=== PATIENT | male | born 1980 | race Native Hawaiian/Other Pacific Islander ===

== ENCOUNTER 2017-02-10 13:40 | Emergency (ER) | payer MEDICAID ==
[2017-02-10 13:46] VITALS: BP 144/97
== END 2017-02-10 14:28 | disposition left against medical advice (07) ==
LOC: ED 13:40
DX: Z53.21 Procedure and treatment not carried out due to patient leaving prior to being seen by health care provider (principal)
CPT/HCPCS: 93005

== ENCOUNTER 2017-03-20 22:00 | Emergency (ER) | payer MEDICAID ==
--- NOTE | 2017-03-20 22:57 | ED Physician Documentation ---
PD HPI HEADACHE - Stated complaint Stated Complaint: OBREGON - Chief complaint Chief Complaint: General - History obtained from History obtained from: Patient - History of Present Illness Timing - onset: Last night Timing - details: Gradual onset, Constant, Waxing and waning Pain level now: 9 Worst headache ever?: No: Worst headache ever? 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 No: Fever , Stiff neck, Vision changes Improved by: Rest, Dark room, Quiet Worsened by: Light, Noise Similar symptoms before: Diagnosis (c/w previous migraine headaches) Recently seen: Emergency Dept (T+R last month for unrelated c/o) - Additional information Additional information: c/o headache that is typical for his migraine headaches, unresponsive to his home medications (imitrex, tylenol. he also takes daily oxycodone for chronic pain) Review of Systems Constitutional: denies: Fever, Chills, Sweats Eyes: reports: Photophobia. 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 denies: Abdominal Pain, Vomiting Neurologic: reports: Headache. denies: Generalized weakness, Focal weakness, Numbness PD PAST MEDICAL HISTORY - Past Medical History Past Medical History: Yes Cardiovascular: Hypertension Neuro: Headache/migraine Musculoskeletal: Chronic back pain - Past Surgical History Past Surgical History: Yes Ortho: Other - Present Medications Home Medications: Ambulatory Orders Medication Instructions Recorded Confirmed Propranolol [Inderal] 10 mg PO DAILY 12/28/15 03/20/17 Lisinopril 40 mg PO DAILY 03/22/16 03/20/17 Sumatriptan Succinate [Imitrex] 100 mg PO ONCE PRN #9 tablet 03/22/16 03/20/17 oxyCODONE [Roxicodone] 10 mg PO BID PRN 08/04/16 03/20/17 cloNIDine 0.1 MG PATCH 1 patch .Q7DAYS 03/20/17 03/20/17 [[id number]] - Allergies Allergies/Adverse Reactions: Allergies Allergy/AdvReac Type Severity Reaction Status Date / Time hydrocodone bitartrate * Allergy Intermediate Rash Verified 03/20/17 22:13 [From Vicodin] amoxicillin Allergy Rash Verified 03/20/17 22:13 crab Allergy Unknown Verified 03/20/17 22:13 iodine Allergy Unknown Verified 03/20/17 22:13 - Social History Does the pt smoke?: No Smoking Status: Former smoker Does the pt drink ETOH?: No Does the pt have substance abuse?: No - Immunizations Immunizations are current?: Yes - POLST Patient has POLST: No PD ED PE NORMAL - Vitals Vital signs reviewed: Yes - General General: Alert and oriented X 3, No acute distress (NAD but prefers lights off in room due to photophobia), Well developed/nourished - HEENT HEENT: PERRL, EOMI, Moist mucous membranes - Neck Neck: Supple, no meningeal sign - Cardiac Cardiac: RRR, No murmur - Respiratory Respiratory: No respiratory distress, Clear bilaterally - Neuro Neuro: Alert and oriented X 3, parking attendant 2-12 intact, No motor deficit, No sensory deficit, Normal speech Results - Vitals Vitals: Vital Signs - 24 hr 03/20/17 03/20/17 03/20/17 22:06 22:41 23:25 Temperature 36.5 C Heart Rate 128 H 90 Respiratory 18 18 Rate Blood Pressure 182/117 H 187/122 H 187/126 H O2 Saturation 98 100 03/21/17 00:00 Temperature Heart Rate 88 Respiratory 16 Rate Blood Pressure 182/125 H O2 Saturation 98 Oxygen O2 Source Room air PD MEDICAL DECISION MAKING - ED course Complexity details: re-evaluated patient, considered differential, d/w patient ED course: Based on previous OBREGON treatment in ED, I offered IV compazine, toradol, and benadryl. Patient prefers to start with SQ imitrex, as this alone has (sometimes ) been effective. Departure - Departure Disposition: 01 Home, Self Care Clinical Impression: Migraine Condition: Good Instructions: ED Headache Migraine Follow-Up: Yanet William DO [Primary Care Provider] - Comments: Take your blood pressure medications as soon as you get home Discharge Date/Time: 03/21/17 00:26
[2017-03-20] MEDS ORDERED: SUMAtriptan 6 MG/0.5 ML VIAL SUBQ STA (23:09)
[2017-03-20] MEDS ORDERED: SUMAtriptan 6 MG/0.5 ML VIAL SUBQ ONE (23:12)
[2017-03-21 00:26] VITALS: BP 182/125
== END 2017-03-21 00:26 | disposition home or self-care (01) ==
LOC: ED 22:00
DX: G43.909 Migraine, unspecified, not intractable, without status migrainosus (principal); I10 Essential (primary) hypertension
CPT/HCPCS: 96372; 99283

== ENCOUNTER 2017-03-25 16:21 | Emergency (ER) | payer MEDICAID ==
[2017-03-25 16:35] VITALS: BP 162/112
== END 2017-03-25 19:43 | disposition left against medical advice (07) ==
LOC: ED 16:21
DX: Z53.21 Procedure and treatment not carried out due to patient leaving prior to being seen by health care provider (principal)

== ENCOUNTER 2017-04-03 12:12 | Emergency (ER) | payer MEDICAID ==
[2017-04-03] MEDS ORDERED: diphenhydrAMINE INJ 50 MG/ML VIAL IVP STA (12:33)
[2017-04-03] MEDS ORDERED: SODIUM CHLORIDE 0.9% 1,000 ML IV ONE (12:33)
[2017-04-03] MEDS ORDERED: SUMAtriptan 6 MG/0.5 ML VIAL SUBQ STA (12:33)
[2017-04-03] MEDS ORDERED: KETOROLAC 30 MG/ML VIAL IVP STA (12:33)
[2017-04-03] MEDS ORDERED: PROCHLORPERAZINE 10 MG/2 ML VIAL IVP STA (12:34)
--- NOTE | 2017-04-03 12:35 | ED Physician Documentation ---
PD HPI HEADACHE - Stated complaint Stated Complaint: HEADACHE - Chief complaint Chief Complaint: Neuro - History obtained from History obtained from: Patient - History of Present Illness Timing - onset: Other (Gradual onset throbbing headache this morning with vomiting, could not keep down his Imitrex. He also has photophobia and phonophobia consistent with prior migraines. No fevers or neck stiffness.) Review of Systems Constitutional: denies: Fever, Chills Eyes: reports: Photophobia Nose: denies: Rhinorrhea / runny nose, Congestion Cardiac: denies: Chest pain / pressure, Palpitations Respiratory: denies: Dyspnea, Cough PD PAST MEDICAL HISTORY - Past Medical History Past Medical History: Yes Cardiovascular: Hypertension Neuro: Headache/migraine Musculoskeletal: Chronic back pain - Past Surgical History Past Surgical History: Yes Ortho: Other - Present Medications Home Medications: Ambulatory Orders Medication Instructions Recorded Confirmed Propranolol [Inderal] 10 mg PO DAILY 12/28/15 04/03/17 Lisinopril 40 mg PO DAILY 03/22/16 04/03/17 Sumatriptan Succinate [Imitrex] 100 mg PO ONCE PRN #9 tablet 03/22/16 04/03/17 oxyCODONE [Roxicodone] 10 mg PO BID PRN 08/04/16 04/03/17 cloNIDine 0.1 MG PATCH 1 patch .Q7DAYS 03/20/17 04/03/17 [[id number]] - Allergies Allergies/Adverse Reactions: Allergies Allergy/AdvReac Type Severity Reaction Status Date / Time hydrocodone bitartrate * Allergy Intermediate Rash Verified 03/20/17 22:13 [From Vicodin] amoxicillin Allergy Rash Verified 03/20/17 22:13 crab Allergy Unknown Verified 03/20/17 22:13 iodine Allergy Unknown Verified 03/20/17 22:13 - Social History Does the pt smoke?: No Smoking Status: Former smoker Does the pt drink ETOH?: No Does the pt have substance abuse?: No - Immunizations Immunizations are current?: Yes - POLST Patient has POLST: No PD ED PE NORMAL - Vitals Vital signs reviewed: Yes - General General: Alert and oriented X 3, Other (Uncomfortable, photophobic) - HEENT HEENT: PERRL, EOMI - Neck Neck: Supple, no meningeal sign, No bony TTP - Neuro Neuro: Alert and oriented X 3, No motor deficit, No sensory deficit, Normal speech - Psych Psych: Normal mood, Normal affect Results - Vitals Vitals: Vital Signs - 24 hr 04/03/17 12:22 Temperature 36.6 C Heart Rate 81 Respiratory 20 Rate Blood Pressure 141/99 H O2 Saturation 100 Oxygen O2 Source Room air PD MEDICAL DECISION MAKING - ED course ED course: 37-year-old gentleman with frequent migraines. Presents with gradual onset headache similar to prior with typical features of migraine. He was administered Compazine, Benadryl, IV fluids, Toradol with good relief, although somewhat incomplete and this was followed by dexamethasone and he requested discharge. Departure - Departure Disposition: 01 Home, Self Care Clinical Impression: Migraine, Headache Condition: Good Record reviewed to determine appropriate education?: Yes Instructions: ED Headache Migraine Comments: Consider following up with a headache specialist given the frequency of your headache, [place], the phone number is Your blood pressure was elevated today on check into the emergency department. This does not mean that you have hypertension, it is a common phenomenon to come to the emergency department and have elevated blood pressure. I recommend that she see her primary care physician within the week to have it rechecked when you are feeling better.
[2017-04-03] MEDS ORDERED: diphenhydrAMINE INJ 50 MG/ML VIAL ONE (12:47)
[2017-04-03] MEDS ORDERED: KETOROLAC 30 MG/ML VIAL ONE (12:47)
[2017-04-03] MEDS ORDERED: SUMAtriptan 6 MG/0.5 ML VIAL SUBQ ONE (12:47)
[2017-04-03] MEDS ORDERED: SODIUM CHLORIDE FLUSH 0.9% 10 ML SYRINGE IVP ONE (12:48)
[2017-04-03] MEDS ORDERED: PROCHLORPERAZINE 10 MG/2 ML VIAL ONE (12:48)
[2017-04-03] MEDS ORDERED: DEXAMETHASONE 10 MG/ML VIAL IVP STA (13:21)
[2017-04-03] MEDS ORDERED: DEXAMETHASONE 10 MG/ML VIAL ONE (13:35)
[2017-04-03 13:47] VITALS: BP 140/87
== END 2017-04-03 13:48 | disposition home or self-care (01) ==
LOC: ED 12:12
DX: G43.909 Migraine, unspecified, not intractable, without status migrainosus (principal); I10 Essential (primary) hypertension; Z87.891 Personal history of nicotine dependence
CPT/HCPCS: 96361; 96372; 96374; 96375; 99283; 99284

== ENCOUNTER 2018-01-04 10:34 | Emergency (ER) | payer MEDICAID ==
--- NOTE | 2018-01-04 10:44 | ED Physician Documentation ---
History of Present Illness - Stated complaint Stated Complaint: SI - Additonal information Additional information: hx from EMS and pt 37 male he and his made a suicide pact to shoot themselves they went into the [place], took some mm relaxants and used some meth he awoke groggy and weak EMS came found his dad pt transported to ED for OD and [facility] he denies other meds he denies pain Review of Systems Constitutional: denies: Fever Throat: denies: Sore throat Cardiac: denies: Chest pain / pressure Respiratory: denies: Dyspnea GI: denies: Abdominal Pain Neurologic: reports: Generalized weakness Psychiatric: reports: Depressed, Suicidal Endocrine: denies: Easy bruising / bleeding Immunocompromised: denies: Immunocompromised PD PAST MEDICAL HISTORY - Past Medical History Cardiovascular: Hypertension Neuro: Headache/migraine Musculoskeletal: Chronic back pain - Past Surgical History Past Surgical History: Yes Ortho: Other - Present Medications Home Medications: Ambulatory Orders Medication Instructions Recorded Confirmed Propranolol [Inderal] 10 mg PO DAILY 12/28/15 04/03/17 Lisinopril 40 mg PO DAILY 03/22/16 04/03/17 Sumatriptan Succinate [Imitrex] 100 mg PO ONCE PRN #9 tablet 03/22/16 04/03/17 oxyCODONE [Roxicodone] 10 mg PO BID PRN 08/04/16 04/03/17 cloNIDine 0.1 MG PATCH 1 patch .Q7DAYS 03/20/17 04/03/17 [[id number]] - Allergies Allergies/Adverse Reactions: Allergies Allergy/AdvReac Type Severity Reaction Status Date / Time hydrocodone bitartrate * Allergy Intermediate Rash Verified 03/20/17 22:13 [From Vicodin] amoxicillin Allergy Rash Verified 03/20/17 22:13 crab Allergy Unknown Verified 03/20/17 22:13 iodine Allergy Unknown Verified 03/20/17 22:13 - Social History Does the pt smoke?: No Smoking Status: Former smoker Does the pt drink ETOH?: No Does the pt have substance abuse?: No - Immunizations Immunizations are current?: Yes - POLST Patient has POLST: No PD ED PE NORMAL - Vitals Vital signs reviewed: Yes - General General: Other (arousable cooperative) - HEENT HEENT: PERRL (7) - Neck Neck: Supple, no meningeal sign - Cardiac Cardiac: RRR - Respiratory Respiratory: No respiratory distress, Clear bilaterally - Abdomen Abdomen: Soft, Non tender - Derm Derm: Normal color, Other (completely undressed and examined and no bullet holes found, no track boyle) - Extremities Extremities: No deformity - Neuro Neuro: Alert and oriented X 3 - Psych Psych: Other (admits suicide plan , denies suicidal right now, denies hallucinations) Results - Vitals Vitals: Vital Signs - 24 hr 01/04/18 01/04/18 10:42 13:43 Temperature 36.7 C Heart Rate 109 H 113 H Respiratory 20 24 Rate Blood Pressure 157/108 H 126/95 H O2 Saturation 97 100 Oxygen O2 Source Room air - EKG (time done) 1108 Rate: Rate (enter#) (110) Rhythm: Sinus tachycardia Spencer: Normal Intervals: Normal CA Ischemia: Other (flat T waves diffusely) - Labs Labs: Laboratory Tests 01/04/18 01/04/18 01/04/18 11:28 11:28 12:10 WBC 14.5 H RBC 5.28 Hgb 15.3 Hct 46.2 MCV 87.4 MCH 29.0 MCHC 33.2 RDW 13.0 Plt Count 339 MPV 6.4 L Neut # 12.1 H Lymph # 1.1 L [place] # 1.2 H Eos # 0.0 Baso # 0.1 Absolute Nucleated RBC 0.00 Nucleated RBC % 0.0 Sodium 135 Potassium 4.4 Chloride 99 L Carbon Dioxide 25 Anion Gap 11.0 BUN 24 H Creatinine 1.4 H Estimated GFR (MDRD) 57 L Glucose 110 H Calcium 9.3 Total Bilirubin 1.0 AST 36 ALT 31 Alkaline Phosphatase 53 Total Protein 7.4 Albumin 4.5 Globulin 2.9 Albumin/Globulin Ratio 1.6 Lipase 19 L Urine Color YELLOW Urine Clarity CLEAR Urine pH 6.0 Ur Specific [place] >=1.030 H Urine Protein NEGATIVE Urine Glucose (UA) NEGATIVE Urine Ketones 15 H Urine Occult Blood NEGATIVE Urine Nitrite NEGATIVE Urine Bilirubin NEGATIVE Urine Urobilinogen 0.2 (NORMAL) Ur Leukocyte Esterase NEGATIVE Ur Microscopic Review NOT INDICATED Urine Culture Comments NOT INDICATED Salicylates < 6.0 Urine Opiates Screen NEGATIVE Ur Oxycodone Screen NEGATIVE Urine Methadone Screen NEGATIVE Ur Propoxyphene Screen NEGATIVE Acetaminophen < 10 L Ur Barbiturates Screen NEGATIVE Ur Tricyclics Screen NEGATIVE Ur Phencyclidine Scrn NEGATIVE Ur Amphetamine Screen POSITIVE H U Methamphetamines Scrn NEGATIVE U Benzodiazepines Scrn NEGATIVE Urine Cocaine Screen NEGATIVE U Cannabinoids Screen NEGATIVE Ethyl Alcohol < 5.0 PD MEDICAL DECISION MAKING - ED course ED course: police are present in the ER the scene is still being investigated pt medically clear, more alert over time in ER 1400 spoke to DANIELA and [facility] not [facility] even after I explained that pt cannot leave 2/2 legal issues so not sure if he qualifies as voluntary, also feel he is poor sonal - DANIELA maintains this is a SW issu [id number] spoke to ALEX and asked her to eval pt - see her note police decided to take pt into custody and states they will have him seen by mental health in residential for suicidal ideation / plan Departure - Departure Disposition: 01 Home, Self Care Clinical Impression: Suicidal ideation, Renal insufficiency, Dehydration Condition: Fair Discharge Date/Time: 01/04/18 17:28
[2018-01-04 11:36] LABS: BASOPHILS # (AUTO) 0.1 10^3/uL (0.0-0.1); BASOPHILS % (AUTO) 0.4 %; EOSINOPHILS % (AUTO) 0.2 %; HGB - HEMOGLOBIN 15.3 g/dL (14.0-18.0); LYMPHOCYTES # (AUTO) 1.1 10^3/uL (1.5-3.5); LYMPHOCYTES % (AUTO) 7.8 %; MEAN CORPUSCULAR HGB CONC 33.2 g/dL (32.0-36.0); MEAN CORPUSCULAR VOLUME 87.4 fL (80.0-94.0); MEAN PLATELET VOLUME 6.4 fL (7.4-11.4); MONOCYTES # (AUTO) 1.2 10^3/uL (0.0-1.0); NEUTROPHILS # (AUTO) 12.1 10^3/uL (1.5-6.6); NEUTROPHILS % (AUTO) 83.6 %; PLT - PLATELET COUNT 339 10^3/uL (130-450); RED BLOOD COUNT 5.28 10^6/uL (4.70-6.10); WHITE BLOOD COUNT 14.5 x10^3/uL (4.8-10.8)
[2018-01-04 11:49] LABS: ALBUMIN 4.5 g/dL (3.2-5.5); ALBUMIN/GLOBULIN RATIO 1.6 (1.0-2.2); ALKALINE PHOSPHATASE 53 IU/L (42-121); ALT ALANINE AMINOTRANSFERASE 31 IU/L (10-60); AST ASPARTATE AMINOTRANSFERASE 36 IU/L (10-42); BUN - BLOOD UREA NITROGEN 24 mg/dL (6-20); CALCIUM 9.3 mg/dL (8.5-10.3); CARBON DIOXIDE - CO2 25 mmol/L (21-32); CHLORIDE 99 mmol/L (101-111); CREATININE 1.4 mg/dL (0.6-1.2); GFR - MDRD 57 (>89); GLUCOSE 110 mg/dL (70-100); LIPASE 19 U/L (22-51); SALICYLATE < 6.0 mg/dL; SODIUM 135 mmol/L (135-145); TOTAL PROTEIN 7.4 g/dL (6.7-8.2)
[2018-01-04 11:50] LABS: ACETAMINOPHEN < 10 ug/mL (10-30)
[2018-01-04 12:15] LABS: MUDS CUTOFF CONCENTRATIONS CUTOFF CONC BELOW:
[2018-01-04 12:16] LABS: BILIRUBIN,URINE NEGATIVE (NEGATIVE); GLUCOSE, URINE (UA) NEGATIVE (NEGATIVE); KETONES,URINE (UA) 15 mg/dL (NEGATIVE); LEUKOCYTE ESTERASE, URINE NEGATIVE (NEGATIVE); NITRITE,URINE NEGATIVE (NEGATIVE); OCCULT BLOOD,URINE NEGATIVE (NEGATIVE); PROTEIN,URINE NEGATIVE (NEGATIVE); UROBILINOGEN,URINE 0.2 (NORMAL) E.U./dL (NORMAL)
[2018-01-04 12:19] LABS: CLARITY,URINE CLEAR (CLEAR)
[2018-01-04 12:31] LABS: AMPHETAMINE SCREEN,URINE POSITIVE (NEGATIVE); BENZODIAZEPINES SCREEN, URINE NEGATIVE (NEGATIVE); COCAINE SCREEN URINE NEGATIVE (NEGATIVE); METHADONE SCREEN, URINE NEGATIVE (NEGATIVE); METHAMPHETAMINES SCREEN, URINE NEGATIVE (NEGATIVE); OPIATE SCREEN, URINE NEGATIVE (NEGATIVE); OXYCODONE SCREEN, URINE NEGATIVE (NEGATIVE); PROPOXYPHENE SCREEN, URINE NEGATIVE (NEGATIVE); TRICYCLIC ANTIDEPRESSANT,URINE NEGATIVE (NEGATIVE)
[2018-01-04 13:44] VITALS: BP 126/95
== END 2018-01-04 17:28 | disposition home or self-care (01) ==
LOC: EDUNIT# → ED 10:34
DX: R45.851 Suicidal ideations (principal); N28.9 Disorder of kidney and ureter, unspecified; E86.0 Dehydration; R00.0 Tachycardia, unspecified; I10 Essential (primary) hypertension; Z79.891 Long term (current) use of opiate analgesic; Z87.891 Personal history of nicotine dependence
CPT/HCPCS: 36415; 80053; 80306; 80307; 80320; 80329; 81001; 81003; 83690; 85025; 87086; 93005; 99283; 99284